=== PATIENT | female | born 1950 | race Caucasian/White ===

== ENCOUNTER → 2024-08-29 13:17 | Outpatient (REF) | payer OTHER, SELFPAY | LOC: RAD 13:17 | PROVIDERS: ATTENDING PHYSICIAN Nurse Practitioner Family | DX: N30.01 Acute cystitis with hematuria (principal); M54.50 Low back pain, unspecified | CPT/HCPCS: 74176 ==

== ENCOUNTER 2024-09-01 13:19 | Inpatient (IN) | payer OTHER, SELFPAY ==
[2024-09-01] VITALS (9 sets, daily range): BP systolic 130–183; BP diastolic 62–118; BMI 35.3; BMI 34.7
--- NOTE | 2024-09-01 06:40 | ED.GENMED ---
History of Present Illness
General
Chief Complaint: Flank Pain
Source: patient and records
Exam Limitations: none
Time Seen by Provider: 09/01/24 06:24
History of Present Illness
History of Present Illness:
74yoF with a history of hypertension, hyperlipidemia, and type 2 diabetes presenting with her for evaluation of flank pain. Symptoms initially began about 1.5 weeks ago. She denies any trauma or inciting incident. Pain is located in the
right flank and radiates to the right lower quadrant. Pain worsens with ambulation and movements. She has had similar pains in the past with a UTI. She was seen by her PCP last week for the symptoms and was diagnosed with a UTI. She was started
on a course of antibiotics which she completed. Patient believes she was taking amoxicillin but is not sure. The pain did not get any better so she was sent for a CT abdomen without contrast 2 days ago which came back negative for any acute
findings. Her PCP told her that her symptoms were likely originating for her from her back and she admits that she does have a 'bad back.' She was prescribed Flexeril which she started yesterday but this does not seem to help. She denies any
fevers, vomiting, dysuria, hematuria, paresthesias.
Past History
Past History
ED Past Medical History: HTN and Hypercholesterolemia
ED Past Surgical History: Cholecystectomy
Social History
Tobacco: Former smoker
Alcohol: None
Living: with family
Employment: Retired
Phy Exam
General Physical Exam
General Presentation: well appearing and no apparent distress
General Skin: warm and dry
General Habitus: normal
General Mental: alert
ENT Exam
ENT Exam: normocephalic
Pulmonary Exam
Pulmonary Exam: lungs clear, no respiratory distress, no rales, no crackles, no rhonchi and no wheezing
Gastrointestinal Exam
Gastrointestinal Exam: soft, non distended and other (+Tenderness to RLQ. Abdomen soft without rebound or guarding. No skin changes. No CVA tenderness noted. )
Neurological Exam
Neurological Exam: alert
[place] Coma Scale
Eye Opening: Spontaneous
Verbal Response: Oriented
Motor Response: Obeys Commands
GCS Total Score: 15
Skin Exam
Skin Exam: normal color and warm/dry
Psychiatric Exam
Psychiatric Exam: normal mood/affect
Course
Orders/Labs/Results
Orders:
Orders
09/01/24 Breakfast
1800 calorie (15 carb) Diabetic
09/01/24 06:38
CT Abd/pelvis W Iv Cont Urgent
Comment:
Reason For Exam: R flank, RLQ pain
Ketorolac [Toradol] 15 mg IV NOW STA
09/01/24 07:01
Complete Blood Count/With Diff Urgent
Comprehensive Metabolic Panel Urgent
Glycohemoglobin (HgbA1c) Urgent
09/01/24 07:17
Urinalysis Reflex To Culture Urgent
Date Specimen was Collected: 09/01/24
Time Specimen was Collected: 07:16
Urine Microscopic Reflex Cult Urgent
Urine Culture Urgent
[place] Source: U
Specimen Description:
Date Specimen was Collected: 09/01/24
Time Specimen was Collected: 07:16
09/01/24 09:16
CefTRIAXone [Rocephin] 2,000 mg IV NOW STA
09/01/24 12:54
Admit/Transfer Patient As Directed
Co-Sign Provider:
Level of Care: Inpatient admission
Assign to:: Medical/Surgical
Physician / Group: Hernan Calderón
Diagnosis: Suspected Pyelonephritis failed outpt treatment
Reason for Hospitalization: Suspected Pyelonephritis failed outpt treatment
Expected length of stay greater than two midnights?: Yes
ELOS- Estimated Length of Stay in days: 2
I certify the patient meets the requirements for IP care: Yes
PRN Pain Medication Management As Directed
May give lesser potent ordered pain med per pt: Yes
preference::
Protocol:: Medication orders for pain may be administered in a
manner that supports deferring to patient preference
when the pt is:
- Requesting an ordered lesser potent pain medication.
Least to most potent pain medications are defined
as: acetaminophen < NSAID < tramadol < opioids
(morphine, oxycodone, hydromorphone).
- Requesting a lesser dose of the same medication IF
ORDERED.
- Requesting a less intrusive route of administration
if both routes are prescribed by the provider (PO <
IV).
09/01/24 13:01
Code Status As Directed
Resuscitation Status: Full Code
09/01/24 13:09
Add On- LAB Routine
Tests Added?: A1c
Abnormal Lab Results
09/01/24 09/01/24
07:01 07:17
WBC 13.8 H 10^3/uL
(4.8-10.8)
Abs Immat Gran (auto) 0.2 H 10^3/uL
(0-0.05)
Absolute Neuts (auto) 11.2 H 10^3/uL
(1.4-6.5)
Absolute Monos (auto) 0.8 H 10^3/uL
(0.1-0.6)
Immature Gran % 1.7 H %
(0-0.5)
Neutrophils % 81.3 H %
(42.2-75.2)
Lymphocytes % 9.8 L %
(20.5-51.1)
BUN 23 H mg/dl
(7-17)
Creatinine 1.1 H mg/dL
(0.6-1.0)
Glucose 137 H mg/dl
(70-99)
Ur Occult Blood Reflex 4+ A
(Negative)
Urine Nitrite (Reflex) Positive A
(Negative)
Leukocyte Esterase Rfl 3+ A
(Negative)
Urine RBC 16-20 A /HPF
(0-2)
Urine WBC (Reflex) >100 A /HPF
(0-5)
Urine Bacteria (Reflex) Many A
(Negative)
Urine Albumin (Reflex) 3+ A
(Neg - Trace)
09/01/24 07:01
09/01/24 07:01
Vital Signs
Initial and Last Documented VS:
Initial Vital Signs
Temp Pulse Resp BP Pulse Ox
97.5 F 82 22 155/118 97
09/01/24 04:47 09/01/24 04:47 09/01/24 04:47 09/01/24 04:47 09/01/24 04:47
Last Documented Vital Signs
Temp Pulse Resp BP Pulse Ox
97.5 F 82 16 138/66 93
09/01/24 04:47 09/01/24 09:00 09/01/24 09:00 09/01/24 09:00 09/01/24 09:00
MDM/Problems Addressed
Differential Diagnosis Includes:
74yoF here with R flank pain x 1.5 weeks. Radiates to RLQ. Worse with movement. Finished abx for a UTI 2 days ago. No f/c. She is hypertensive with otherwise stable vitals. She is non-toxic appearing. No CVA tenderness on exam. Differential
diagnosis includes but is not limited to: pyelonephritis, kidney stone, UTI, musculoskeletal, appendicitis
Initial ED plan: CBC, CMP, UA, and CT abdomen with IV contrast. IV Toradol for pain.
*Critical Care Note
Total Time (30-74mins, 75-104mins- exclusive of procedures): Not Applicable
Update Note
Update Note:
UA is nitrite positive with >100 WBCs and many bacteria. White count is 13.8. CT is negative for acute findings. Symptoms are causing ambulatory dysfunction and family does note comfortable with her going home. Suspect pain is musculoskeletal vs.
pyelonephritis. Patient had a similar presentation in 2018 for which she was hospitalized. IV Rocephin ordered and patient admitted for further management.
ED Attending Note
-
Portions of this chart may have been created with voice recognition software.� Occasional wrong word or��sound alike� substitutions may have occurred due to the inherent limitations of voice recognition software.
Discharge Plan
Departure
Patient Disposition: Admit
Date of Disposition: 09/01/24
Time of Disposition: 09:18
Presentation/result/management discussed w/ accepting MD/DO: Hospitalist
Discharge Problem:
Urinary tract infection, Right flank pain
Interventions
Interventions:
*Risk Screen - Suicide Last Done: 09/01/24 04:47
*General Assessment Last Done: 09/01/24 07:06
*Neglect/Abuse Screening Last Done: 09/01/24 04:47
*ED- Fall Risk Assessment Last Done: 09/01/24 07:06
*ED COVID-19 Vaccine History Last Done: 09/01/24 07:06
WH-Mnmxmx-Qooywfforf Assessment Last Done: 09/01/24 07:04
ED-Female Genitourinary Assessment Last Done: 09/01/24 07:04
[2024-09-01] MEDS: TORADOL 15 MG IV (07:00)
--- NOTE | 2024-09-01 07:05 | EDRN ---
Pt OOB to BR and pain increased immediately from 04/12 to 01/10 w/ pt hardly able to stand up straight and needing assistance to walk to BR.
[2024-09-01 07:18] LABS: % Basophils 0.4 % (0-2); % Eosinophils 0.8 % (0-6); % Immature Granulocytes 1.7 % (0-0.5); % Lymphocytes 9.8 % (20.5-51.1); % Neutrophils 81.3 % (42.2-75.2); Absolute Basophils 0.1 10^3/uL (0-0.2); Absolute Eosinophils 0.1 10^3/uL (0-0.7); Absolute Immature Granulocytes 0.2 10^3/uL (0-0.05); Absolute Lymphocytes 1.4 10^3/uL (1.2-3.4); Absolute Monocytes 0.8 10^3/uL (0.1-0.6); Absolute Neutrophils 11.2 10^3/uL (1.4-6.5); Hematocrit 41.4 % (37.0-47.0); Hemoglobin 13.7 g/dL (12.0-16.0); Mean Corp Hgb Conc. 33.1 g/dL (33.0-37.0); Mean Corpuscular Volume 90.6 fL (81.0-99.0); Nucleated Red Blood Cells % 0 %; Platelet Count 281 10^3/uL (130-400); Red Blood Cell Count 4.57 10^6/uL (4.20-5.40); Red Cell Dist. Width 12.7 % (11.5-14.5); White Blood Cell Count 13.8 10^3/uL (4.8-10.8)
[2024-09-01 07:31] LABS: Urine Albumin 3+ (Neg - Trace); Urine Bilirubin Negative (Negative); Urine Character Slightly Cloudy (Clear); Urine Color Yellow; Urine Glucose Negative (Negative); Urine Ketone Negative (Negative); Urine Leukocyte 3+ (Negative); Urine Nitrite Positive (Negative); Urine Occult Blood 4+ (Negative); Urine Specific Gravity 1.015 (<1.030); Urine Urobilinogen Negative (Neg - 1+)
[2024-09-01 07:35] LABS: ALT (SGPT) 13 U/L (0-35); AST (SGOT) 20 U/L (14-36); Albumin 4.7 g/dl (3.5-5.0); Alkaline Phosphatase 90 U/L (38-126); Blood Urea Nitrogen 23 mg/dl (7-17); Calcium 9.7 mg/dl (8.4-10.2); Carbon Dioxide 23 mmol/L (22-30); Chloride 107 mmol/L (98-107); Estimated Creatinine Clearance 53 ml/min; Glucose 137 mg/dl (70-99); Potassium 4.6 mmol/L (3.5-5.1); Sodium 139 mmol/L (135-145); Total Bilirubin 0.7 mg/dl (0.2-1.3); Total Protein 7.8 g/dl (6.3-8.2); eGFR 52.08
[2024-09-01 07:52] LABS: Urine Bacteria Many (Negative); Urine Red Blood Cell 16-20 /HPF (0-2); Urine White Cell >100 /HPF (0-5)
--- NOTE | 2024-09-01 09:27 | HPS.HSE ---
Family Physician
-
Family Physician: THOMAS Grady
Chief Complaint
-
right sided flank pain
History of Present Illness
74F HTN, HLD, DM CKDIII Sciatica p/w severe right sided flank/back pain progressive for past few weeks. Pain is located in the right flank and radiates down to buttocks. Pain worsens with ambulation and movements. Reportedly she has had similar
pains in the past with UTI. She was seen by her PCP last week and started on a course of antibiotics which she completed. Pain did not improve, patient experienced severe impairment ambulatory function. CT abd/pelvis noted not acute abn's.
Urinalysis notes pyuria. Vital signs stable afebrile, mild leukocytosis Cr 1.1, otherwise labs unremarkable.
Medical History
Past Medical History
Past Medical History: Reports Other
Additional Past Medical History:
as above
Past Surgical History: Reports Other
Additional Past Surgical History:
as above
Social History
Tobacco: Non-smoker
Alcohol: Occasional
Drug: None
Personal:
Living: With Family
Family History
Family History: Not pertinent (reviewed)
Allergies / Home Medications
Allergies reflects when Allergies were last updated in [facility].
Home Medications with original date entered in [facility]
Allergy/Medication List:
Allergies
Allergy/AdvReac Type Severity Reaction Status Date / Time
NKA - No Known Allergies Allergy Unknown Uncoded 02/25/18 13:48
Home Medications
aspirin 81 mg tablet,delayed release (Adult Aspirin Regimen) 81 mg PO DAILY Blood Clot Prevention/Tx 02/25/18
atorvastatin 10 mg tablet 10 mg PO MOWEFR High Cholesterol 02/25/18
cholecalciferol (vitamin D3) 50 mcg (2,000 unit) capsule (Vitamin D3) 2,000 unit PO DAILY 02/25/18
lisinopril 40 mg tablet 40 mg PO DAILY Blood Pressure 02/25/18
mecobalamin (vitamin B12) 1,000 mcg disintegrating tablet,sublingual 1,000 mcg PO DAILY Supplement 02/25/18
Vitamin B-3 1 dose PO DAILY Supplement 09/01/24
estradiol 1.25 gram/actuation (0.06%) transdermal gel pump (EstroGel) 1.25 g transdermal SUWE Hormonal Agent 09/01/24
ferrous sulfate 325 mg (65 mg iron) tablet (Iron (ferrous sulfate)) 325 mg PO MOWEFR Supplement 09/01/24
gabapentin 300 mg capsule 300 mg PO TID Pain 09/01/24
pioglitazone 15 mg-metformin 850 mg tablet 1 tab PO BID Diabetes 09/01/24
Review of Systems
-
A 12 point ROS was completed and negative except as noted: Yes
Constitutional: Reports Other (as below)
Physical Exam
Vital Signs
Vital Signs
Temp Pulse Resp BP Pulse Ox
97.5 F 85 16 133/85 93
09/01/24 04:47 09/01/24 08:00 09/01/24 08:00 09/01/24 08:00 09/01/24 08:00
Physical Exam
General: Other (as below)
Laboratory Results
-
09/01/24 07:01
09/01/24 07:01
Laboratory Results
Total Bilirubin 0.7 mg/dl (0.2-1.3) 09/01/24 07:01
AST 20 U/L (14-36) 09/01/24 07:01
ALT 13 U/L (0-35) 09/01/24 07:01
Alkaline Phosphatase 90 U/L (38-126) 09/01/24 07:01
Impression/Plan
-
ROS
General: Denies fever chills night sweats unexpected weight loss
Neuro: Denies seizure shaking loss of consciousness dizziness vertigo
Psych: denies depression hallucinations confusion manic episodes
Endocrine: Denies polyuria polydipsia polyphagia heat/cold intolerance
HEENT: Denies blindness visual disturbances epistaxis
Pulmonary: denies coughing hemoptysis sneezing sob dyspnea on exertion
Cardiovascular: denies chest pain palpitations leg swelling
Hematology: denies signs symptoms of anemia easy bruising/bleeding
Gastrointestinal: denies nausea vomiting diarrhea constipation hematemesis hematochezia melena
Genito-Urinary: denies retention incontinence dysuria
Musculoskeletal: severe right sided flank/lower back pain with radiation down to buttocks
Dermatology: denies rash laceration bruising
Physical Exam
General: No pallor, cyanosis, or jaundice.
HEENT: Throat clear. PERRLA Normocephalic atraumatic
NECK: Supple. No JVD Carotid Bruits
RESPIRATORY: Lungs clear to auscultation. No crackles wheezes stridor
CVS: S1, S2 normal. RRR. No murmur, rub or gallop.
ABDOMEN: Soft, non-tender. No distension. BS+/normal. Tenderness right flank closer to buttocks area, not quite costovertebral angle.
EXTREMITIES: No peripheral cyanosis or edema. Negative straight leg test b/l
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 No focal deficits.
IMPRESSION:
74F HTN, HLD, DM CKDIII Sciatica p/w severe right sided flank/back pain progressive for past few weeks. Pain located in the right flank and radiates down to buttocks. Pain worsens with ambulation and movements. Reportedly she has had similar
pains in the past with UTI. She was seen by her PCP last week and started on a course of antibiotics which she completed. Pain did not improve, patient experienced severe impairment ambulatory function. CT abd/pelvis noted not acute abn's.
Urinalysis noted pyuria. Vital signs stable afebrile, mild leukocytosis Cr 1.1, otherwise labs unremarkable.
PLAN:
#Severe back pain possibly pyelonephritis vs musculoskeletal
Med/surg admit
CT abd/pelvis appreciated severe calcific atherosclerotic plaque abd aorta and visceral arteries, severe multilevel lumbar discogenic degenerative dz
cont abx ceftriaxone for now, follow up urine culture
lidocaine patches
Tylenol Q4HWA
pain control prn oxycodone Dilaudid
fall precautions
PT/OT
#HTN
cont home lisinopril with holding parameters
#HLD
cont home statin
#DM
update A1c
low dose sliding scale
cont home pioglitazone metformin
monitor and titrate diabetic medication regimen as necessary
#CKDIII
Baseline 1.1-1.2
avoid nephrotoxic agents
monitor renal function
Sciatica
Neuropathy
cont home gabapentin
possible Lt rectal mass noted on CT 08/29/24
has outpt follow up with [facility] scheduled
dvt ppx SCD
gi ppx protonix
Full Code
discussed with patient, patient's daughter Dunia, and patient's granddaughter Madelin
I spent a total of 75 minutes with the patient or on the floor. More than 50% of this time involved counseling and coordination of care.
[2024-09-01] MEDS: ROCEPHIN 2000 MG IV (09:33)
--- NOTE | 2024-09-01 12:24 | CM ---
Addendum entered by Stephanie Levine 09/01/24 12:27:
Son Roosevelt Barba to be secondary contact per pt request [phone]
VM left for admissions
Original Note:
CM met with pt, spouse and son/Roosevelt
Pt and spouse [place] [address]
Pt is indep with her ADLs w/o ADs, drives+
Has a WW/quad cane for use if needed
Pt denies financial insecurities
Pt has 6 children, all local and available for support as needed
PCP- Genesis Mahmood
Rx- [facility]
Discharge Disposition- anticipate home no needs
[2024-09-01] MEDS: PROTONIX 40 MG PO (18:46)
[2024-09-01] MEDS: TYLENOL 650 MG PO ×3 (18:46→23:43)
[2024-09-01] MEDS: BenGay-Like 1 APPLIC TOPICAL ×2 (18:47→21:31)
[2024-09-01] MEDS: NEURONTIN 300 MG PO ×2 (18:47→21:26)
[2024-09-01] MEDS: ACTOS 15 MG PO (18:48)
[2024-09-01] MEDS: GLUCOPHAGE 850 MG PO (18:48)
[2024-09-01 18:53] LABS: Glucose - Point of Care 126 mg/dl (70-99)
[2024-09-01] MEDS: LIDOCAINE 4% PATCH 2 PATCH TOPICAL (21:26)
[2024-09-01 21:49] LABS: Glucose - Point of Care 109 mg/dl (70-99)
[2024-09-01] MEDS: ROXICODONE 5 MG PO (23:43)
[2024-09-02] MEDS: ZOFRAN 4 MG IV (00:15)
[2024-09-02] MEDS: TYLENOL PO ×2 (05:15→23:15)
[2024-09-02 05:32] LABS: Hematocrit 39.7 % (37.0-47.0); Mean Corp Hgb Conc. 32.7 g/dL (33.0-37.0); Mean Corpuscular Hgb 29.5 pg (27.0-31.0); Mean Corpuscular Volume 90.2 fL (81.0-99.0); Mean Platelet Volume 10.1 fL (7.4-10.4); Platelet Count 268 10^3/uL (130-400); Red Cell Dist. Width 12.7 % (11.5-14.5); White Blood Cell Count 8.7 10^3/uL (4.8-10.8)
[2024-09-02 05:57] LABS: Blood Urea Nitrogen 22 mg/dl (7-17); Calcium 9.4 mg/dl (8.4-10.2); Carbon Dioxide 24 mmol/L (22-30); Chloride 106 mmol/L (98-107); Estimated Creatinine Clearance 49 ml/min; Glucose 120 mg/dl (70-99); Magnesium 1.7 mg/dl (1.6-2.3); Potassium 4.9 mmol/L (3.5-5.1); Sodium 138 mmol/L (135-145); eGFR 46.91
[2024-09-02 06:00] VITALS: BMI 34.5
[2024-09-02] MEDS: DILAUDID 0.25 MG IV (06:26)
[2024-09-02 07:29] VITALS: BP 146/68
[2024-09-02 07:47] LABS: Glucose - Point of Care 121 mg/dl (70-99)
[2024-09-02] MEDS: VITAMIN D3 (cholecalciferol) 50 MCG PO (08:42)
[2024-09-02] MEDS: VITAMIN B-12 1000 MCG PO (08:42)
[2024-09-02] MEDS: TYLENOL 650 MG PO ×4 (08:42→20:34)
[2024-09-02] MEDS: ASPIR LOW (ENTERIC COATED) 81 MG PO (08:42)
[2024-09-02] MEDS: NEURONTIN 300 MG PO ×3 (08:42→20:34)
[2024-09-02] MEDS: PROTONIX 40 MG PO (08:42)
[2024-09-02] MEDS: BenGay-Like 1 APPLIC TOPICAL ×4 (08:43→20:34)
[2024-09-02] MEDS: FEOSOL 325 MG PO (08:48)
[2024-09-02] MEDS: ZESTRIL 40 MG PO (08:48)
[2024-09-02] MEDS: LIPITOR 10 MG PO (08:48)
[2024-09-02] MEDS: ROCEPHIN 1000 MG IV (08:49)
[2024-09-02] MEDS: STERILE WATER FOR INJECTION 10 ML IV (08:49)
[2024-09-02] MEDS: ACTOS PO (08:50)
[2024-09-02] MEDS: GLUCOPHAGE PO (08:50)
[2024-09-02] MEDS: ZYRTEC 5 MG PO (11:03)
[2024-09-02 11:21] LABS: Glycohemoglobin (HgbA1c) 6.2 % (4.0-5.6)
[2024-09-02 11:36] VITALS: BP 162/76; PULSE 72; O2SAT 93
[2024-09-02 11:55] LABS: Glucose - Point of Care 114 mg/dl (70-99)
[2024-09-02 11:59] VITALS: BP 162/76; PULSE 76; O2SAT 93
--- NOTE | 2024-09-02 12:48 | W.PN.HOSP.TC ---
Today's Communication/Plan
-
Assessment / Plan
Assessment / Plan
NAD
Scleral Anicteric
MMM
No JVD
CTABL
RRR, S1/S2
Soft, NT, ND, BS+
No CVA tenderness
Warm, Dry
AAOx3
Calm
UTI that has been ongoing with urinary frequency associated flank pain s/p 2 weeks outpatient antibiotics without improvement
CT abdomen pelvis without evidence of pyelonephritis
Follow-up urine culture
IV antibiotics
ID consulted
Rectal mass
Outpatient colorectal surgery follow-up
Severe degenerative disc disease with known history of sciatica/neuropathy
Continue home gabapentin
CKD stage III
Avoid nephrotoxic's agents
Monitor renal function
Hyperlipidemia
Continue statin
Diabetes
Hold metformin as received IV contrast study and known history of CKD stage III
Serial Accu-Cheks carb controlled diet
Abdominal aortic calcification, former smoker
Yearly abdominal ultrasound
Anticipated Discharge: 24 - 48 hours
Subjective/Interval History
-
Date of Service: September 02, 2024
seen and examined. no new complaints
has diffuse itching which is chronic and ongoing for 3years. [facility]
Objective Data
-
Labs:
Laboratory Results
09/02/24
05:07
WBC 8.7
Hgb 13.0
Hct 39.7
Plt Count 268
Sodium 138
Potassium 4.9
Chloride 106
Carbon Dioxide 24
BUN 22 H
Creatinine 1.2 H
Glucose 120 H
Calcium 9.4
Vital Signs:
Vital Signs
Temp Pulse Resp BP Pulse Ox
98.2 F 77 14 146/68 94
09/02/24 07:29 09/02/24 07:29 09/02/24 07:29 09/02/24 07:29 09/02/24 08:00
I&O
09/01/24 09/02/24 09/03/24
06:59 06:59 06:59
Intake Total 480 / 480
Balance 480 / 480
--- NOTE | 2024-09-02 14:47 | CON.ID ---
Consultation
-
Date/Time Consultation Requested: 09/02/2024 1034
Date/Time Consultation Performed: 09/02/2024 1400
Requesting Provider: Dr. Monroe
Performing Provider: Dr. Arguello
Reason for Consultation: Urinary tract infection; right flank pain
Chief Complaint / Past History
History of Present Illness
Lian Barba is a 74-year-old female being evaluated at the request of Dr. Monroe in regards to right flank pain and suspected urinary tract infection. History is obtained from chart review, along with patient interview.
The patient has a history of urinary tract infections, and previously has been placed on estrogen cream, which she reports taking twice a week. She reports she was in her usual health until approximately 1-1/2 weeks ago when she developed some
right flank discomfort, with radiation to her right hip area. She reports that on previous occasions this was consistent with a urinary tract infection, and she was seen by her PCP and started on a 7-day course of Augmentin. She completed her
antibiotic therapy, but still noted ongoing pain. She notes that a CT scan was then ordered, but without significant findings. Because of the ongoing pain she ultimately came to the hospital for further evaluation.
She denies any fevers, although she reports occasional chills. She admits to nausea, but denies any vomiting. She denies any dysuria. She notes at rest, her discomfort in the right flank/hip area is approximately 1/10, but notes increased
discomfort with ambulation. She feels like it is 'pinching' or 'stabbing' her. There has been no radiation down her leg.
Since admission, she has been started on empiric antibiotics, and Infectious Diseases asked to comment upon further antimicrobial therapy.
Past History
Additional Past Medical History:
HTN
Dyslipidemia
DM type II
Additional Past Surgical History:
Cholecystectomy
Allergy History:
NKA - No Known Allergies Allergy (Uncoded 02/25/18 13:48)
Unknown
Medications Reviewed: Yes
Current Antibiotics:
Ceftriaxone
Social History
Tobacco: Former Smoker
Alcohol: None
Drug: None
Personal:
Living: With Family
Employment: Retired
Family History
Family History: Not Pertinent
Review of Systems
Vital Signs
Temp Pulse Resp BP Pulse Ox
98.2 F 77 14 146/68 94
09/02/24 07:29 09/02/24 07:29 09/02/24 07:29 09/02/24 07:29 09/02/24 08:00
Physical Exam
Physical Exam
Constitutional: No Acute Distress, Comfortable, Chronically Ill and Non-toxic
Eyes: Pupils Equal, Pupils Round, No Conjunctival Hemorrhage and Sclera Anicteric
Oral: No Thrush and No Ulcers
Cardiovascular: Regular Rate and S1/S2; Negative S3/S4
Pulmonary: Clear; Negative Wheezes, Rales or Rhonchi
Gastrointestinal: Soft, Non Tender, Non Distended, Normal Bowel Sounds, No Rebound and No Guarding
Genito-Urinary: CVA Tenderness; Negative Espinal
Extremities: Negative Edema, Cyanosis or Erythema
Skin: Warm and Dry; Negative Rash or Jaundice
Neurological: Awake and Alert
Psychological: Calm
Lab / Diagnostic Study Results
09/02/24 05:07
09/02/24 05:07
Abs Immat Gran (auto) 0.2 10^3/uL (0-0.05) H 09/01/24 07:01
Absolute Neuts (auto) 11.2 10^3/uL (1.4-6.5) H 09/01/24 07:01
Absolute Lymphs (auto) 1.4 10^3/uL (1.2-3.4) 09/01/24 07:01
Absolute Monos (auto) 0.8 10^3/uL (0.1-0.6) H 09/01/24 07:01
Absolute Basos (auto) 0.1 10^3/uL (0-0.2) 09/01/24 07:01
Immature Gran % 1.7 % (0-0.5) H 09/01/24 07:01
Neutrophils % 81.3 % (42.2-75.2) H 09/01/24 07:01
Lymphocytes % 9.8 % (20.5-51.1) L 09/01/24 07:01
Monocytes % 6.0 % (1.7-9.3) 09/01/24 07:01
Eosinophils % 0.8 % (0-6) 09/01/24 07:01
Basophils % 0.4 % (0-2) 09/01/24 07:01
Ur Squamous Epith Cells 6-10 /LPF (Few) 09/01/24 07:17
Microbiology Results
Micro:
09/01/24 07:17 Urine Culture - Preliminary
Urine Gram negative bacilli
Imaging:
09/01/2024 CT abdomen/pelvis with contrast: Moderate amount of fecal material throughout the proximal colon. Moderate diverticulosis in the sigmoid colon. Moderate chronic bilateral renal disease. Mild biliary dilatation. Previous cholecystectomy
noted. No hydronephrosis in either kidney. No retroperitoneal or mesenteric lymphadenopathy.
08/29/2024 CT abdomen/pelvis without contrast: Mild atrophic kidneys. No evidence for urinary tract stone or obstruction.
Assessment / Plan
Right flank discomfort
Bacteriuria/pyuria without symptomatology
Leukocytosis; improved/resolved
HTN
Dyslipidemia
DM type II
Recommendations:
Urine culture currently reveals presence of a gram-negative jose.
Continue on ceftriaxone for the present.
Not entirely sure that right flank discomfort is urologic in etiology. Question whether due to musculoskeletal issue.
Follow white count and temperature curve.
Await further culture data to guide further antimicrobial selection and potential de-escalation.
[2024-09-02 15:21] VITALS: BP 148/69
[2024-09-02 16:15] LABS: Glucose - Point of Care 128 mg/dl (70-99)
[2024-09-02] MEDS: LIDOCAINE 4% PATCH TOPICAL (20:21)
[2024-09-02] MEDS: ROXICODONE 5 MG PO (20:32)
[2024-09-02 21:27] LABS: Glucose - Point of Care 111 mg/dl (70-99)
[2024-09-02 23:00] VITALS: BP 165/71
[2024-09-03] MEDS: ROXICODONE 5 MG PO (02:27)
[2024-09-03] MEDS: TYLENOL 650 MG PO ×3 (02:28→12:09)
[2024-09-03 05:39] VITALS: BMI 34.3
[2024-09-03 05:43] LABS: Hematocrit 39.7 % (37.0-47.0); Mean Corp Hgb Conc. 32.7 g/dL (33.0-37.0); Mean Corpuscular Hgb 29.6 pg (27.0-31.0); Mean Corpuscular Volume 90.4 fL (81.0-99.0); Mean Platelet Volume 10.4 fL (7.4-10.4); Platelet Count 280 10^3/uL (130-400); Red Blood Cell Count 4.39 10^6/uL (4.20-5.40); Red Cell Dist. Width 12.8 % (11.5-14.5); White Blood Cell Count 8.3 10^3/uL (4.8-10.8)
[2024-09-03 06:21] LABS: Blood Urea Nitrogen 22 mg/dl (7-17); Calcium 9.6 mg/dl (8.4-10.2); Carbon Dioxide 24 mmol/L (22-30); Chloride 104 mmol/L (98-107); Estimated Creatinine Clearance 53 ml/min; Glucose 136 mg/dl (70-99); Magnesium 1.7 mg/dl (1.6-2.3); Potassium 5.2 mmol/L (3.5-5.1); Sodium 136 mmol/L (135-145); eGFR 52.08
[2024-09-03 07:35] VITALS: BP 148/74
[2024-09-03 07:40] LABS: Glucose - Point of Care 121 mg/dl (70-99)
[2024-09-03 07:49] VITALS: BP 147/73
[2024-09-03] MEDS: PROTONIX 40 MG PO (08:36)
[2024-09-03] MEDS: NEURONTIN 300 MG PO (08:36)
[2024-09-03] MEDS: ZESTRIL 40 MG PO (08:36)
[2024-09-03] MEDS: VITAMIN B-12 1000 MCG PO (08:36)
[2024-09-03] MEDS: ASPIR LOW (ENTERIC COATED) 81 MG PO (08:36)
[2024-09-03] MEDS: ZYRTEC 5 MG PO (08:36)
[2024-09-03] MEDS: BenGay-Like 1 APPLIC TOPICAL (08:37)
[2024-09-03] MEDS: VITAMIN D3 (cholecalciferol) 50 MCG PO (08:37)
[2024-09-03] MEDS: ROCEPHIN 1000 MG IV (08:37)
[2024-09-03] MEDS: STERILE WATER FOR INJECTION 10 ML IV (08:37)
[2024-09-03 11:51] VITALS: BP 152/63
[2024-09-03 11:52] LABS: Glucose - Point of Care 143 mg/dl (70-99)
[2024-09-03] MEDS: BenGay-Like TOPICAL (12:25)
--- NOTE | 2024-09-03 14:54 | CM ---
MD indicated discharge today.
Spoke with pt . She said she was ready for discharge.
Her Zachary will drive her home.
Offered VN she declined.
PLAN Home no needs
--- NOTE | 2024-09-03 14:56 | W.PN.HOSP.TC ---
Today's Communication/Plan
-
dc home
More than 30 minutes spent in discharge including
Final examination of the patient
Summarizing hospital stay
Instructions for continuing care to all relevant caregivers
Preparation of discharge records, prescriptions, and referral forms
Total time spent (in minutes):33mins
Assessment / Plan
Assessment / Plan
NAD
Scleral Anicteric
MMM
No JVD
CTABL
RRR, S1/S2
Soft, NT, ND, BS+
No CVA tenderness
Warm, Dry
AAOx3
Calm
UTI that has been ongoing with urinary frequency associated flank pain s/p 2 weeks outpatient antibiotics without improvement
CT abdomen pelvis without evidence of pyelonephritis
Klebsiella relatively pansensitive however resistant to ampicillin.
Transition Rocephin to Keflex 500 mg 4 times daily for total 14 days or for 11 more days
ID following
Back pain likely musculoskeletal
Continue activity and warm compress
Rectal mass
Outpatient colorectal surgery follow-up
Severe degenerative disc disease with known history of sciatica/neuropathy
Continue home gabapentin
CKD stage III
Avoid nephrotoxic's agents
Monitor renal function
Hyperlipidemia
Continue statin
Diabetes
Hold metformin as received IV contrast study and known history of CKD stage III
Serial Accu-Cheks carb controlled diet
Abdominal aortic calcification, former smoker
Yearly abdominal ultrasound
Anticipated Discharge: Today
Subjective/Interval History
-
Date of Service: September 03, 2024
Seen and examined. No new complaints. No acute overnight events
Continues to have intermittent right-sided back pain.
Objective Data
-
Labs:
Laboratory Results
09/03/24
05:12
WBC 8.3
Hgb 13.0
Hct 39.7
Plt Count 280
Sodium 136
Potassium 5.2 H
Chloride 104
Carbon Dioxide 24
BUN 22 H
Creatinine 1.1 H
Glucose 136 H
Calcium 9.6
Vital Signs:
Vital Signs
Temp Pulse Resp BP Pulse Ox
97.4 F 73 16 152/63 93
09/03/24 11:51 09/03/24 11:51 09/03/24 11:51 09/03/24 11:51 09/03/24 11:51
I&O
09/02/24 09/03/24 09/04/24
06:59 06:59 06:59
Intake Total 480 / 480 2400 / 2400
Balance 480 / 480 2400 / 2400
[2024-09-03 15:18] VITALS: BP 161/75
--- NOTE | 2024-09-03 15:30 | W.DCSUMMARY ---
Discharge Summary
Discharge Data
Date of Admission: 09/01/24
Date of Discharge: 09/03/24
-
Pending Results: No
Hospital Course
74F HTN, HLD, DM CKDIII Sciatica
Presented with right-sided flank pain and back pain that was progressively worsening over the past few weeks. Right flank pain radiated down his buttocks worse with ambulation/movements. Similar pain in the past with previous UTI. Was started on
a course of antibiotics which was completed however pain did not improve. CT abdomen pelvis without acute abnormalities in the ER though urine analysis noted pyuria. Urine culture positive for Klebsiella that was sensitive however resistant to
ampicillin. ID was consulted and recommended to transition to Keflex 500 mg 4 times daily for additional 11 days to complete 14-day course of antibiotics. Additionally, I suspected back pain/flank pain likely musculoskeletal in nature this was
also what ID believed as well.
Additionally, on day of discharge noted to have a potassium of 5.2. Lisinopril held. Repeat BMP as outpatient in 3 days. Follow low potassium diet
Reviewed all imaging studies and findings including rectal mass calcified aorta with family. Please see below CT reports
Will need continued outpatient follow-up with PCP colorectal surgeon. Will likely require yearly abdominal aortic ultrasounds to assess for abdominal aortic aneurysm.
Abdominal Pelvis CT without IV con(08.29)
IMPRESSION:
Mildly atrophic kidneys
No evidence for urinary tract stone or obstruction.
Soft tissue nodular fullness to the left rectal wall. This is more prominent than on the prior CT. This could represent neoplastic disease. Direct visualization of this region recommended.
Mild sigmoid diverticulosis
Status post cholecystectomy. Mild biliary ductal dilatation secondary to the cholecystectomy.
Abdominal.Pelvis CT with IV con(09.01)
IMPRESSION:
1. Moderate amount of fecal material throughout the proximal colon.
2. Moderate diverticulosis in the sigmoid colon.
3. Moderate chronic bilateral renal disease.
4. Mild biliary dilatation.
5. Previous cholecystectomy.
6. Mild diffuse hepatic steatosis.
7. Severe calcific atherosclerotic plaque in the abdominal aorta and visceral arteries.
8. Severe multilevel lumbar discogenic degenerative disease.
9. Moderate left convex curvature of the upper lumbar spine.
Discharge Plan
-
Patient Disposition: Home (Routine Discharge)
Discharge Diagnosis/Procedures: Klebsiella UTI
Diet: As tolerated
Additional Diets: LOW potassium diet
Activity: As tolerated
Blood Work: BMP with PCP in 3days
Activity Restrictions/Additional Instructions:
Presented with right-sided flank pain and back pain that was progressively worsening over the past few weeks. Right flank pain radiated down his buttocks worse with ambulation/movements. Similar pain in the past with previous UTI. Was started on
a course of antibiotics which was completed however pain did not improve. CT abdomen pelvis without acute abnormalities in the ER though urine analysis noted pyuria. Urine culture positive for Klebsiella that was sensitive however resistant to
ampicillin. ID was consulted and recommended to transition to Keflex 500 mg 4 times daily for additional 11 days to complete 14-day course of antibiotics. Additionally, I suspected back pain/flank pain likely musculoskeletal in nature this was
also what ID believed as well.
Additionally, on day of discharge noted to have a potassium of 5.2. Lisinopril held. Repeat BMP as outpatient in 3 days. Follow low potassium diet
Reviewed all imaging studies and findings including rectal mass calcified aorta with family. Please see below CT reports
Will need continued outpatient follow-up with PCP colorectal surgeon. Will likely require yearly abdominal aortic ultrasounds to assess for abdominal aortic aneurysm.
Abdominal Pelvis CT without IV con(08.29)
IMPRESSION:
Mildly atrophic kidneys
No evidence for urinary tract stone or obstruction.
Soft tissue nodular fullness to the left rectal wall. This is more prominent than on the prior CT. This could represent neoplastic disease. Direct visualization of this region recommended.
Mild sigmoid diverticulosis
Status post cholecystectomy. Mild biliary ductal dilatation secondary to the cholecystectomy.
Abdominal.Pelvis CT with IV con(09.01)
IMPRESSION:
1. Moderate amount of fecal material throughout the proximal colon.
2. Moderate diverticulosis in the sigmoid colon.
3. Moderate chronic bilateral renal disease.
4. Mild biliary dilatation.
5. Previous cholecystectomy.
6. Mild diffuse hepatic steatosis.
7. Severe calcific atherosclerotic plaque in the abdominal aorta and visceral arteries.
8. Severe multilevel lumbar discogenic degenerative disease.
9. Moderate left convex curvature of the upper lumbar spine.
Referrals:
Ugo Roque MD [Active, ColoRectal] - in one to two weeks
Genesis Mahmood CRNP [Family Provider]
Prescriptions:
New
sennosides-docusate sodium 8.6-50 mg Tablet
1 tab PO BIDPRN PRN (Reason: constipation) Qty: 30 0RF
oxycodone 5 mg Tablet
5 mg PO Q4HPRN PRN (Reason: moderate pain) Qty: 12 0RF
cephalexin 500 mg capsule
500 mg PO QID 11 Days Qty: 44 0RF
Continued
atorvastatin 10 MG tablet
10 mg PO MOWEFR
aspirin [Adult Aspirin Regimen] 81 MG tablet,delayed release (DR/EC)
81 mg PO DAILY
cholecalciferol (vitamin D3) [Vitamin D3] 2,000 UNIT capsule
2,000 unit PO DAILY
mecobalamin (vitamin B12) 1,000 MCG tablet,disintegrating
1,000 mcg PO DAILY
ferrous sulfate [Iron (ferrous sulfate)] 325 mg (65 mg iron) Tablet
325 mg PO MOWEFR
gabapentin 300 mg Capsule
300 mg PO TID
estradiol [EstroGel] 1.25 gram/actuation Gel In Metered-Dose Pump
1.25 g TRANSDERMAL SUWE
Vitamin B-3
1 dose PO DAILY
pioglitazone-metformin 15-850 mg tablet
1 tab PO BID
Held
lisinopril 40 MG tablet
40 mg PO DAILY
Hold Instructions: Resume on 09/11/24. Once PCP recs to resume Holding due to potassium of 5.2
Discharge Orders:
Discharge Patient (As Directed); Ordered 09/03/24
Ordered By: Nadir Monroe
Discharge Date and Time
Print Language: ARABIC
[2024-09-03] MEDS: LOKELMA 10 GRAM PO (15:36)
--- NOTE | 2024-09-03 15:59 | W.PN.ID1 ---
Date of Service
Date of Service: September 03, 2024
Today's Communication
Transition to oral Keflex at discharge.
Assessment / Plan
Right flank discomfort
Bacteriuria/pyuria without symptomatology
Leukocytosis; improved/resolved
HTN
Dyslipidemia
DM type II
Recommendations:
Urine culture currently reveals presence of Klebsiella pneumoniae
Narrowed to cephalexin 500 mg p.o. 4 times daily for an additional 10 days.
Not entirely sure that right flank discomfort is urologic in etiology. Question whether due to musculoskeletal issue.
Patient reports a prior history of low back pain and injections at the site. I advised outpatient follow-up with orthopedics.
Chief Complaint
-: UTI
Subjective / Review of Systems
Patient seen and examined. Still with some right back discomfort. Denies dysuria.
Vital Signs / Physical Exam
Vital Signs
Vital Signs
Temp Pulse Resp BP Pulse Ox
97.3 F 68 16 161/75 94
09/03/24 15:18 09/03/24 15:18 09/03/24 15:18 09/03/24 15:18 09/03/24 15:18
Physical Exam
Constitutional: No Acute Distress, Comfortable, Chronically Ill and Non-toxic
Cardiovascular: S1/S2; Negative S3/S4
Pulmonary: Non Labored
Gastrointestinal: Soft and Non Tender
Neurological: Awake and Alert
Psychological: Calm
Objective Data
Lab Data
Lab Results
09/03/24 05:12
09/03/24 05:12
Estimated Creat Clear 53 ml/min 09/03/24 05:12
Total Bilirubin 0.7 mg/dl (0.2-1.3) 09/01/24 07:01
AST 20 U/L (14-36) 09/01/24 07:01
ALT 13 U/L (0-35) 09/01/24 07:01
Alkaline Phosphatase 90 U/L (38-126) 09/01/24 07:01
Most recent labs reviewed.
Micro Results:
09/01/24 07:17 Urine Culture - Final
Urine Klebsiella pneumoniae
Imaging:
09/01/2024 CT abdomen/pelvis with contrast: Moderate amount of fecal material throughout the proximal colon. Moderate diverticulosis in the sigmoid colon. Moderate chronic bilateral renal disease. Mild biliary dilatation. Previous cholecystectomy
noted. No hydronephrosis in either kidney. No retroperitoneal or mesenteric lymphadenopathy.
08/29/2024 CT abdomen/pelvis without contrast: Mild atrophic kidneys. No evidence for urinary tract stone or obstruction.
Care Review
Plan reviewed with: Physician (Hospitalist)
== END 2024-09-03 15:57 | disposition home or self-care (01) | DRG 552 ==
LOC: 3 WEST ACU 13:19
PROVIDERS: Physician Assistant; ADMITTING PHYSICIAN Internal Medicine; ATTENDING PHYSICIAN Hospitalist; CONSULT PHYSICIAN Internal Medicine Infectious Disease; EMERGENCY PHYSICIAN Emergency Medicine; FAMILY PHYSICIAN Nurse Practitioner Family
DX: M51.360 Other intervertebral disc degeneration, lumbar region with discogenic back pain only (principal); N39.0 Urinary tract infection, site not specified; Z16.11 Resistance to penicillins; B96.1 Klebsiella pneumoniae [K. pneumoniae] as the cause of diseases classified elsewhere; K57.30 Diverticulosis of large intestine without perforation or abscess without bleeding; Z90.49 Acquired absence of other specified parts of digestive tract; K76.0 Fatty (change of) liver, not elsewhere classified; I12.9 Hypertensive chronic kidney disease with stage 1 through stage 4 chronic kidney disease, or unspecified chronic kidney disease; E11.22 Type 2 diabetes mellitus with diabetic chronic kidney disease; N18.30 Chronic kidney disease, stage 3 unspecified; E78.00 Pure hypercholesterolemia, unspecified; M54.30 Sciatica, unspecified side; I70.0 Atherosclerosis of aorta; Z87.891 Personal history of nicotine dependence; Z79.82 Long term (current) use of aspirin; E11.40 Type 2 diabetes mellitus with diabetic neuropathy, unspecified; K83.8 Other specified diseases of biliary tract; Z79.899 Other long term (current) drug therapy; Z87.440 Personal history of urinary (tract) infections
CPT/HCPCS: 74177; 80048; 80053; 81003; 81015; 82962; 83036; 83735; 85025; 85027; 87077; 87086; 87186; 96374; 96375; 97162; 97166; 99285; Q9967